=== PATIENT | male | born 1990 | race Caucasian/White ===

== ENCOUNTER 2018-12-31 05:44 | Emergency (ER) | payer SELFPAY ==
[~2018-12-31] VITALS: Ht 182.9 cm; Wt 117.9 kg
[2018-12-31 05:58] VITALS: BP 132/71
[2018-12-31] MEDS ORDERED: TRAM50TA PO (06:21)
[2018-12-31] MEDS ORDERED: ACYC800T PO (06:21)
--- NOTE | 2018-12-31 06:21 | PHYS DOC ---
Past Medical History Past Medical History: No Pertinent History Past Surgical History: No Surgical History Alcohol Use: Occasionally Drug Use: Marijuana Adult General Chief Complaint Chief Complaint: SKIN PROBLEM [facility] HPI Patient is a 28 year old presented to the ER today for evaluation of painful rash on the right side of his face since Monday night. No fever. No headache, no blurry vision. Review of Systems Review of Systems Constitutional: Denies fever or chills [] Eyes: Denies change in visual acuity, redness, or eye pain [] HENT: Denies nasal congestion or sore throat [] Respiratory: Denies cough or shortness of breath [] Cardiovascular: No additional information not addressed in HPI [] GI: Denies abdominal pain, nausea, vomiting, bloody stools or diarrhea [] : Denies dysuria or hematuria [] Musculoskeletal: Denies back pain or joint pain [] Integument: PAINFUL SKIN RASH ON RIGHT SIDE FACE Neurologic: Denies headache, focal weakness or sensory changes [] Endocrine: Denies polyuria or polydipsia [] All other systems were reviewed and found to be within normal limits, except as documented in this note. Allergies Allergies Allergies Coded Allergies Type Severity Reaction Last Updated Verified No Known Drug Allergies 07/03/15 No Physical Exam Physical Exam Constitutional: Well developed, well nourished, no acute distress, non-toxic appearance. [] HENT: Normocephalic, atraumatic, bilateral external ears normal, oropharynx mois t, no oral exudates, nose normal. [] Eyes: PERRLA, EOMI, conjunctiva normal, no discharge. NO CONJUNCTIVAL INJECTION. Neck: Normal range of motion, no tenderness, supple, no stridor. [] Cardiovascular:Heart rate regular rhythm, no murmur [] Lungs & Thorax: Bilateral breath sounds clear to auscultation [ Skin: NUMEROUS CRUSTED LESIONS ON RIGHT SIDE FACE, RIGHT SIDE FOREHEAD AND SCALP AREA, RIGHT SIDE NOSE, AROUND RIGHT PERIORBITAL AREA, NOT CROSSING MIDLINE. ] Extremities: No tenderness, no cyanosis, no clubbing, ROM intact, no edema. [] Neurologic: Alert and oriented X 3, normal motor function, normal sensory function, no focal deficits noted. [] Psychologic: Affect normal, judgement normal, mood normal. [] Current Patient Data Vital Signs Vital Signs Date Time Temp Pulse Resp B/P (MAP) Pulse Ox O2 Delivery O2 Flow Rate FiO2 12/31/18 05:58 99.0 98 18 132/71 (91) 99 Room Air 99.0 EKG EKG [] Radiology/Procedures Radiology/Procedures [] Course & Med Decision Making Course & Med Decision Making Pertinent Labs and Imaging studies reviewed. (See chart for details) [] Dragon Disclaimer Dragon Disclaimer This electronic medical record was generated, in whole or in part, using a voice recognition dictation system. Departure Departure Impression: Primary Impression: Terry Disposition: HOME, SELF-CARE Condition: STABLE Referrals: NO PCP (PCP) follow up with your doctor this week for reevaluation Patient Instructions: Terry Scripts Tramadol Hcl (TRAMADOL HCL) 50 Mg Tablet 50 MG PO Q6HRS PRN for PAIN for 5 Days, #20 TAB Prov: TIFFANY BOSE DO 12/31/18 Acyclovir (ACYCLOVIR) 800 Mg Tablet 1 TAB PO 5XDAY for 10 Days, #50 TAB Prov: TIFFANY BOSE DO 12/31/18 TIFFANY BOSE DO Dec 31, 2018 06:21
== END 2018-12-31 06:25 | disposition home or self-care (01) ==
LOC: ER 05:44
DX: B02.9 Zoster without complications (principal)
CPT/HCPCS: 99283

== ENCOUNTER 2019-04-01 08:41 | Emergency (ER) | payer SELFPAY ==
[~2019-04-01] VITALS: Ht 182.9 cm; Wt 117.9 kg
[~2019-04-01 08:41] MED LIST: ACYC800T PO; TRAM50TA PO
--- NOTE | 2019-04-01 08:52 | PHYS DOC ---
Past Medical History Past Medical History: No Pertinent History Past Surgical History: No Surgical History Alcohol Use: Occasionally Drug Use: Marijuana Adult General HPI HPI Patient is a 29-year-old male who presents to the emergency department via EMS. He states he has been under a lot of stress, and having a lot of anxiety, primarily related to work-related stress, as well as ongoing difficulties with custody of his children. He had a panic attack or work today, where he was hyperventilating. He is feeling somewhat better at this time. He denies any pain. He denies any suicidal or homicidal thoughts. He denies hallucinations. He is not currently under the care of a psychiatrist or other mental health professional. There are no alleviating or exacerbating factors to his symptoms otherwise. Review of Systems Review of Systems Constitutional: Denies fever or chills [] Eyes: Denies change in visual acuity, redness, or eye pain [] HENT: Denies nasal congestion or sore throat [] Respiratory: Denies cough or current shortness of breath . Denies pleuritic pain.[] Cardiovascular: The patient denies any shortness of breath, chest pain, palpitations, or orthopneaI [] GI: Denies abdominal pain, nausea, vomiting, bloody stools or diarrhea [] : Denies dysuria or hematuria [] Musculoskeletal: Denies back pain or joint pain [] Integument: Denies rash or skin lesions [] Neurologic: Denies headache, focal weakness or current sensory changes. Did report some paresthesias while hyperventilating prior to arrival. [] Endocrine: Denies polyuria or polydipsia [] All other systems were reviewed and found to be within normal limits, except as documented in this note. Current Medications Current Medications Current Medications Medications (Trade) Dose Ordered Sig/Daya Start Time Stop Time Status Last Admin Dose Admin Lorazepam (Ativan) 1 mg 1X ONCE 04/01/19 09:00 04/01/19 09:01 DC 04/01/19 09:13 1 MG Allergies Allergies Allergies Coded Allergies Type Severity Reaction Last Updated Verified No Known Drug Allergies 07/03/15 No Physical Exam Physical Exam PHYSICAL EXAM: CONSTITUTIONAL: Well developed, well nourished HEAD: normocephalic, atraumatic EENT: PERRL, EOMI. Conjunctivae normal color, sclerae non-icteric; moist mucous membranes. NECK: Supple, non-tender; no meningismus. LUNGS: Lungs CTA, breathing even and unlabored. Normal air movement. HEART: Regular rate and rhythm, no murmur CHEST: No deformity; non-tender ABDOMEN: The abdomen is soft, and non-tender, no masses or bruits. EXTREM: Normal ROM; no deformity, no calf tenderness. Normal pulses palpable in all extremities. There is no pedal edema. SKIN: No rash; no diaphoresis NEURO: Alert; normal speech and cognition; CN's grossly intact; strength grossly intact without focal deficit. BACK: No CVA TTP. PSYCHIATRIC: Anxious affect. Denies SI or HI. Current Patient Data Vital Signs Vital Signs Date Time Temp Pulse Resp B/P (MAP) Pulse Ox O2 Delivery O2 Flow Rate FiO2 04/01/19 09:11 60 18 132/73 (92) 97 Room Air 04/01/19 08:42 98.1 98.1 EKG EKG [] Radiology/Procedures Radiology/Procedures [] Course & Med Decision Making Course & Med Decision Making Patient condition remains stable, he is feeling better, and was seen by PAT health insurance assessor, and has been given outpatient follow-up resources. I discussed diagnosis and return precautions with the patient. Dragon Disclaimer Dragon Disclaimer This electronic medical record was generated, in whole or in part, using a voice recognition dictation system. Departure Departure Impression: Primary Impression: Anxiety Disposition: 01 HOME, SELF-CARE Condition: STABLE Patient Instructions: Anxiety and Panic Attacks Additional Instructions: Follow-up for mental health counseling related to anxiety, using the resources provided. Return to medical care for any new or worsening symptoms, development of suicidal thoughts, inability to cope, or any other concerning symptoms. GEORGIA SORENSEN MD Apr 01, 2019 08:52
[2019-04-01] MEDS ORDERED: LORazepam 0.5 MG TABLET PO ONE (09:00)
[2019-04-01 10:41] VITALS: BP 137/85
== END 2019-04-01 11:27 | disposition home or self-care (01) ==
LOC: ER 08:41
DX: F41.9 Anxiety disorder, unspecified (principal)
CPT/HCPCS: 99284

== ENCOUNTER 2019-08-21 23:16 | Emergency (ER) | payer OTHER ==
[~2019-08-21] VITALS: Ht 182.9 cm; Wt 106.0 kg
[2019-08-21 23:20] VITALS: BP 153/83
--- NOTE | 2019-08-22 00:11 | PHYS DOC ---
Past Medical History Past Medical History: Other Additional Past Medical Histor: STRESS INDUCED SHINGLES (DELFINA CRUZ APRN) Past Surgical History: No Surgical History (DELFINA CRUZ APRN) Alcohol Use: Occasionally Drug Use: Marijuana Social History Narrative: MARIJUANA DAILY (DELFINA CRUZ APRN) Attending Signature I have participated in the care of this patient and I have reviewed and agree with all pertinent clinical information above including history, exam, and recommendations. (EMA CASTRO MD) Adult General Chief Complaint Chief Complaint: Congestion HPI HPI Patient is a 29 year old male who presents with runny nose, scabbing in his nose, and a tender nose is been ongoing for 3 weeks. 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 He has been sneezing and having these symptoms since he changed his work environment. Denies any other symptoms. Complete ROS were reviewed and found to be within normal limits, except as documented in the HPI (DELFINA CRUZ APRN) Allergies Allergies Allergies Coded Allergies Type Severity Reaction Last Updated Verified No Known Drug Allergies 07/03/15 No (EMA CASTRO MD) Physical Exam Physical Exam Constitutional: Well developed, well nourished, no acute distress, non-toxic appearance. [] HENT: Normocephalic, atraumatic, bilateral external ears normal, oropharynx moist, no oral exudates, nose has crusting and scabs. Eyes: PERRLA, EOMI, conjunctiva normal, no discharge. [] Neck: Normal range of motion, no tenderness, supple, no stridor. [] Cardiovascular:Heart rate regular rhythm, no murmur [] Lungs & Thorax: Bilateral breath sounds clear to auscultation [] Skin: Warm, dry, no erythema, no rash. [] Neurologic: Alert and oriented X 3, normal motor function, normal sensory function, no focal deficits noted. [] Psychologic: Affect normal, judgement normal, mood normal. [] (DELFINA CRUZ APRN) Current Patient Data Vital Signs Vital Signs Date Time Temp Pulse Resp B/P (MAP) Pulse Ox O2 Delivery O2 Flow Rate FiO2 08/21/19 23:20 98.4 79 16 153/83 (106) 99 98.4 (EMA CASTRO MD) EKG EKG [] (DELFINA CRUZ APRN) Radiology/Procedures Radiology/Procedures [] (DELFINA CRUZ APRN) Course & Med Decision Making Course & Med Decision Making Pertinent Labs and Imaging studies reviewed. (See chart for details) [] (DELFINA CRUZ APRN) Dragon Disclaimer Dragon Disclaimer This electronic medical record was generated, in whole or in part, using a voice recognition dictation system. (DELFINA CRUZ APRN) Departure Departure Impression: Primary Impression: Allergic rhinitis Disposition: HOME, SELF-CARE Condition: STABLE Referrals: NO PCP (PCP) Patient Instructions: Allergic Rhinitis Additional Instructions: Thank you for visiting [facility]. We appreciate you trusting us with your care. If any additional problems come up don't hesitate to return to visit us. Please follow up with your primary care provider so they can plan additional care if needed and know about the problem that you had. If symptoms worsen come back to the Emergency Department. Any concerning symptoms that start such as chest pain, shortness of air, weakness or numbness on one side of the body, running high fevers or any other concerning symptoms return to the ER. Please get neosporin and put small amounts in nares. Also please get Zyrtec and take per label instructions. Problem Qualifiers Primary Impression: Allergic rhinitis Allergic rhinitis trigger: unspecified Allergic rhinitis seasonality: unspecified Qualified Codes: J30.9 - Allergic rhinitis, unspecified DELFINA CRUZ APRN Aug 22, 2019 00:11 EMA CASTRO MD Aug 22, 2019 04:17
== END 2019-08-22 00:19 | disposition home or self-care (01) ==
LOC: ER 23:16
DX: J30.9 Allergic rhinitis, unspecified (principal)
CPT/HCPCS: 99281

== ENCOUNTER 2019-10-16 18:32 | Emergency (ER) | payer OTHER ==
[~2019-10-16] VITALS: Ht 182.9 cm; Wt 118.0 kg
[2019-10-16 18:39] VITALS: BP 131/59
[2019-10-16] MEDS ORDERED: MUPI22OI2 TP (18:54)
--- NOTE | 2019-10-16 18:54 | PHYS DOC ---
Past Medical History Past Medical History: Other Additional Past Medical Histor: STRESS INDUCED SHINGLES (ASHLI ACOSTA APRN) Past Surgical History: No Surgical History (ASHLI ACOSTA APRN) Smoking Status: Current Every Day Smoker Alcohol Use: Occasionally Drug Use: Marijuana (ASHLI ACOSTA APRN) Attending Signature I have participated in the care of this patient and I have reviewed and agree with all pertinent clinical information above including history, exam, and recommendations. (EMA CASTRO MD) Adult General Chief Complaint Chief Complaint: SKIN PROBLEM HPI HPI Patient is a 29 year old who presents to the emergency department with complaints of a red blisterlike rash noted to the left medial ankle that started last night. Patient states that the area itches, he denies any pain or known injury. Patient denies any numbness, tingling, or weakness of the affected foot he denies any fever, cough, nausea, vomiting, diarrhea, or sore throat. Patient states that his family members recently were diagnosed with impetigo and he is pretty sure that that is what he has. He currently denies any pain. (ASHLI ACOSTA APRN) Review of Systems Review of Systems Complete ROS is negative unless otherwise noted in HPI. (ASHLI ACOSTA APRN) Allergies Allergies Allergies Coded Allergies Type Severity Reaction Last Updated Verified No Known Drug Allergies 07/03/15 No (EMA CASTRO MD) Physical Exam Physical Exam See Above Constitutional: Well developed, well nourished, no acute distress, non-toxic appearance. [] HENT: Normocephalic, atraumatic, bilateral external ears normal, nose normal. [] Eyes: PERRLA, EOMI, conjunctiva normal, no discharge. [] Neck: Normal range of motion, no stridor. [] Cardiovascular:Heart rate regular rhythm Lungs & Thorax: Respirations even and unlabored, no retractions, no respiratory distress Skin: Warm, dry, 2 cm x 0.5 cm erythremic area with few small vessicles over it noted to medial L ankle consistent with bullous impetigo Extremities: No cyanosis, ROM intact, no edema. [] Neurologic: Alert and oriented X 3, no focal deficits noted. [] Psychologic: Affect normal, judgement normal, mood normal. [] (ASHLI ACOSTA APRN) Current Patient Data Vital Signs Vital Signs Date Time Temp Pulse Resp B/P (MAP) Pulse Ox O2 Delivery O2 Flow Rate FiO2 10/16/19 18:39 98.5 80 16 131/59 (83) 97 Room Air 98.5 (EMA CASTRO MD) EKG EKG [] (ASHLI ACOSTA APRN) Radiology/Procedures Radiology/Procedures [] (ASHLI ACOSTA APRN) Course & Med Decision Making Course & Med Decision Making Pertinent Labs and Imaging studies reviewed. (See chart for details) [] (ASHLI ACOSTA APRN) Dragon Disclaimer Dragon Disclaimer This electronic medical record was generated, in whole or in part, using a voice recognition dictation system. (ASHLI ACOSTA APRN) Departure Departure Impression: Primary Impression: Impetigo contagiosa bullosa Disposition: HOME, SELF-CARE Condition: STABLE Referrals: NO PCP (PCP) Patient Instructions: Impetigo Additional Instructions: Fill the prescription(s) and use as directed. Keep fingernails trimmed short. Apply antibiotic ointment under fingernails as instructed. Follow up with your primary care doctor next week for recheck, return to the ER if symptoms worsen. Scripts Mupirocin (MUPIROCIN OINTMENT) 22 Gm Oint...g. 1 FAYE TP TID for WOUND CARE, #1 TUBE Prov: ASHLI ACOSTA APRN 10/16/19 ASHLI ACOSTA APRN Oct 16, 2019 18:54 EMA CASTRO MD Oct 17, 2019 01:32
== END 2019-10-16 19:04 | disposition home or self-care (01) ==
LOC: ER 18:32
DX: L01.03 Bullous impetigo (principal); F17.200 Nicotine dependence, unspecified, uncomplicated
CPT/HCPCS: 99283

== ENCOUNTER 2020-10-22 05:15 | Emergency (ER) | payer SELFPAY ==
[~2020-10-22] VITALS: Ht 182.9 cm; Wt 113.6 kg
[~2020-10-22 05:15] MED LIST changes: +MUPI22OI2 TP
--- NOTE | 2020-10-22 05:40 | PHYS DOC ---
Past Medical History Past Medical History: Other Additional Past Medical Histor: STRESS INDUCED SHINGLES Past Surgical History: No Surgical History Smoking Status: Current Every Day Smoker Alcohol Use: Occasionally Drug Use: Marijuana General Adult EDM: Chief Complaint: FLANK PAIN HPI: HPI: Patient is a 30 year old male presenting for left lower back/flank pain. Onset was approximately 5 hours prior to arrival and woke him up from sleep when rolling over. There is no inciting event and/or trauma. He has no history of kidney stones, admits he has distant history of UTI and STD but stated at that time he was having penile discharge and irritation with pain, he denies any other symptoms today. Denies being sexually active. Does admit to being in poor health than usual due to living a more sedentary lifestyle, does admit to helping friends move/relocate houses but denies any obvious inciting event or mechanism of injury Review of Systems: Review of Systems: Fourteen body systems of review of systems have been reviewed. See HPI for pertinent positives and negative responses, other dobson all other systems are negative, non-pertinent or non-contributory Heart Score: C/O Chest Pain: No HEART Score for Chest Pain: HEART Score for Chest Pain Response (Comments) Value History Slighlty/Non-Suspicious 0 Age < 45 0 Risk Factors No Risk Factors 0 Total 0 Risk Factors: Risk Factors: DM, Current or recent (<one month) smoker, HTN, HLP, family history of CAD, obesity. Risk Scores: Score 0 - 3: 2.5% MACE over next 6 weeks - Discharge Home Score 4 - 6: 20.3% MACE over next 6 weeks - Admit for Clinical Observation Score 7 - 10: 72.7% MACE over next 6 weeks - Early Invasive Strategies Current Medications: Current Medications Medications (Trade) Dose Ordered Sig/[facility] Start Time Stop Time Status Last Admin Dose Admin Ketorolac Tromethamine (Toradol 30mg Vial) 30 mg 1X ONCE 10/22/20 06:00 10/22/20 06:01 Allergies: Allergies: Allergies Coded Allergies Type Severity Reaction Last Updated Verified No Known Drug Allergies 07/03/15 No Physical Exam: PE: Constitutional: Well developed, well nourished, no acute distress, non-toxic appearance. HENT: Normocephalic, atraumatic, bilateral external ears normal, oropharynx moist, no oral exudates, nose normal. Eyes: PERRLA, EOMI, conjunctiva normal, no discharge. Neck: Normal range of motion, no tenderness, supple, no stridor. Cardiovascular: Heart rate regular, sinus rhythm, no murmurs rubs or gallops Lungs & Thorax: Bilateral breath sounds clear to auscultation Abdomen: Bowel sounds normal, soft, no tenderness, no masses, no pulsatile masses. Nonsurgical abdomen, no peritoneal signs Skin: Warm, dry, no erythema, no rash. Back: No midline tenderness but there is tenderness with palpation to left paralumbar muscle spasm, left CVA tenderness. Extremities: No tenderness, no cyanosis, no clubbing, ROM intact, no edema. Neurologic: Alert and oriented X 3, grossly normal motor & sensory function, no focal deficits noted. Psychologic: Affect normal, judgement normal, mood normal. Current Patient Data: Vital Signs: Vital Signs Date Time Temp Pulse Resp B/P (MAP) Pulse Ox O2 Delivery O2 Flow Rate FiO2 10/22/20 05:25 97.7 81 20 137/74 (95) 100 Room Air 97.7 Vital Signs Date Time Temp Pulse Resp B/P (MAP) Pulse Ox O2 Delivery O2 Flow Rate FiO2 10/22/20 05:55 71 20 137/75 (95) 99 Room Air 10/22/20 05:25 97.7 97.7 EKG: EKG: [] Radiology/Procedures: Radiology/Procedures: [] Course & Med Decision Making: Course & Med Decision Making ER work-up most consistent with left paralumbar muscle strain versus other likely self-limiting condition. Reviewed ER work-up in its entirety involving negative labs and imaging Patient does not have a primary care physician, he was given resources on who he can follow-up with on departure Supportive care practices advised. Strict return precautions discussed with good understanding by patient, all questions and concerns addressed prior to departure Cruzito Disclaimer: [place] Disclaimer: This electronic medical record was generated, in whole or in part, using a voice recognition dictation system. Departure Departure Impression: Primary Impression: Acute left flank pain Disposition: 01 DC HOME SELF CARE/HOMELESS Condition: STABLE Referrals: NO PCP (PCP) Patient Instructions: Flank Pain Additional Instructions: You have been evaluated in the Emergency Department today for left flank pain. Your evaluation was not suggestive of any emergent condition requiring medical intervention at this time. However, some abdominal problems make take more time to appear. Therefore, it is important for you to watch for any new symptoms or worsening of your current condition. Please follow up with your primary care physician as needed. If you do not have a primary doctor, you can call your insurance company to find one. If you do not have insurance, you can go to the finance/registration department for more assistance. Return to the Emergency Department if you experience worsening pain, persistent fevers greater than 100.4, recurrent vomiting, blood in vomit, blood in stool, dark tarry stool, chest pain, difficulty breathing, or any other concerning symptoms. Scripts Ibuprofen (IBUPROFEN) 800 Mg Tablet 800 MG PO PRN TID PRN for PAIN, #30 TAB take with food or milk to avoid upsetting stomach Prov: FADI RODNEY DO 10/22/20 FADI RODNEY DO Oct 22, 2020 05:40
[2020-10-22 05:51] LABS: BASO # 0.1 x10^3/uL (0.0-0.2); BASO % 1 % (0-3); EOS # 0.2 x10^3/uL (0.0-0.7); EOS % 2 % (0-3); HEMATOCRIT 43.9 % (39.0-53.0); HEMOGLOBIN 14.9 g/dL (13.0-17.5); LYMPH # 2.9 x10^3/uL (1.0-4.8); LYMPH % 27 % (24-48); MEAN CORPUSCULAR HEMOGLOBIN 30 pg (25-35); MEAN CORPUSCULAR HGB CONC 34 g/dL (31-37); MEAN CORPUSCULAR VOLUME 87 fL (79-100); MONO # 1.1 x10^3/uL (0.0-1.1); MONO % 10 % (0-9); NEUT # 6.7 x10^3/uL (1.8-7.7); NEUT % 61 % (31-73); PLATELET COUNT 199 x10^3/uL (140-400); RED BLOOD COUNT 5.04 x10^6/uL (4.30-5.70); RED CELL DISTRIBUTION WIDTH 14.1 % (11.5-14.5)
[2020-10-22 05:55] VITALS: BP 137/75
[2020-10-22] MEDS ORDERED: KETOROLAC 30 MG/ML VIAL. IVP ONE (06:00)
[2020-10-22 06:01] LABS: CREATININE 1.2 mg/dL (0.7-1.3); GFR 70.6; POTASSIUM 4.3 mmol/L (3.5-5.1)
[2020-10-22 06:06] LABS: ALBUMIN 3.7 g/dL (3.4-5.0); TOTAL BILIRUBIN 0.2 mg/dL (0.2-1.0); TOTAL PROTEIN 7.5 g/dL (6.4-8.2)
--- NOTE | 2020-10-22 06:08 | RAD ---
PQRS Compliance Statement: One or more of the following individualized dose reduction techniques were utilized for this examinat ion: 1. Automated exposure control 2. Adjustment of the mA and/or kV according to patient size 3. Use of iterative reconstruction technique CT ABDOMEN+PELVIS WO Clinical Indication: Reason: left flank pain / Spl. Instructions: / History: Comparison: None. Technique: Helical CT imaging of the abdomen and pelvis is performed without IV or oral contrast. Findings: Minimal bilateral dependent atelectasis. There is a 5 mm nodule in the left lower lobe, image 3. In a patient of this age this is probably benign. Consider CT chest follow-up in 12 months if patient has risk factors for lung malignancy, otherwise no follow-up is required per Fleischner Society guidelin es. The cardiac size is normal. The liver, gallbladder, spleen, pancreas, adrenal glands, and abdominal aorta caliber are normal. There are several punctate bilateral nonobstructing renal calculi versus mild medullary nephrocalcino sis. There is no perinephric stranding or hydronephrosis. There is no ureteral calculus. There is no obvious abnormality of the stomach. There is no dilated small bowel. The appendix is norm al. There is scattered stool in the colon. No colon wall thickening is identified. There is no abdomi nal adenopathy or free fluid. The urinary bladder is normal. The prostate and seminal vesicles are normal. There is no pelvic free fluid. There is no acute bone abnormality. IMPRESSION: 1. No acute abdominal or pelvic abnormality. No obstructive uropathy. 2. There are punctate bilateral nonobstructing renal calculi versus mild medullary nephrocalcinosis. Electronically signed by: Gonsalo Quintana MD (10/22/2020 6:06 AM) [facility]
[2020-10-22] MEDS ORDERED: IBUP-1060 PO (06:29)
[2020-10-22] MEDS ORDERED: hydroCHLOROthiazide 12.5 MG CAPSULE PO ONE (07:00)
[2020-10-22] MEDS ORDERED: amLODIPine BESYLATE 5 MG TABLET PO ONE (07:00)
== END 2020-10-22 06:50 | disposition home or self-care (01) ==
LOC: ER 05:15
DX: R10.32 Left lower quadrant pain (principal); M54.5 Low back pain; F17.200 Nicotine dependence, unspecified, uncomplicated; Z87.440 Personal history of urinary (tract) infections
CPT/HCPCS: 36415; 74176; 80053; 85025; 96374; 99284; J1885

== ENCOUNTER 2021-09-17 16:52 | Emergency (ER) | payer OTHER ==
[~2021-09-17] VITALS: Ht 182.9 cm; Wt 113.6 kg
[~2021-09-17 16:52] MED LIST changes: -ACYC800T PO; +ACYC800T88 PO; +IBUP-1060 PO
--- NOTE | 2021-09-17 17:57 | PHYS DOC ---
Past Medical History Past Medical History: UTI, Other Additional Past Medical Histor: STRESS INDUCED SHINGLES Past Surgical History: No Surgical History Smoking Status: Current Every Day Smoker Alcohol Use: None Drug Use: Marijuana General Adult EDM: Chief Complaint: LOWER EXTREMITY SWELLING HPI: HPI: Patient is a 31-year-old male that presents today with bilateral leg pain and edema. Patient states he started working at a new job recently where he standing on his feet quite a bit and he has noticed that his legs are continuously swollen and are very painful to touch. Patient states he wears [place] to work and does not wear compression stockings he wears regular socks. Patient denies trauma or injury to his legs, patient states that he has had difficulties with swelling in his legs for a number of years is just worsened over the last week or so. Patient denies chest pain or shortness of air at this time. Review of Systems: Review of Systems: Constitutional: Denies fever or chills. [] Eyes: Denies change in visual acuity. [] HENT: Denies nasal congestion or sore throat. [] Respiratory: Denies cough or shortness of breath. [] Cardiovascular: Denies chest pain or edema. [] GI: Denies abdominal pain, nausea, vomiting, bloody stools or diarrhea. [] : Denies dysuria. [] Musculoskeletal: Bilateral leg pain and swelling Integument: Denies rash. [] Neurologic: Denies headache, focal weakness or sensory changes. [] Endocrine: Denies polyuria or polydipsia. [] Lymphatic: Denies swollen glands. [] Psychiatric: Denies depression or anxiety. [] Heart Score: C/O Chest Pain: N/A Risk Factors: Risk Factors: DM, Current or recent (<one month) smoker, HTN, HLP, family history of CAD, obesity. Risk Scores: Score 0 - 3: 2.5% MACE over next 6 weeks - Discharge Home Score 4 - 6: 20.3% MACE over next 6 weeks - Admit for Clinical Observation Score 7 - 10: 72.7% MACE over next 6 weeks - Early Invasive Strategies Allergies: Allergies: Allergies Coded Allergies Type Severity Reaction Last Updated Verified No Known Drug Allergies 07/03/15 No Physical Exam: PE: Constitutional: Well developed, well nourished, no acute distress, non-toxic appearance. [] HENT: Normocephalic, atraumatic, bilateral external ears normal, oropharynx moist, no oral exudates, nose normal. [] Eyes: PERRLA, EOMI, conjunctiva normal, no discharge. [] Neck: Normal range of motion, no tenderness, supple, no stridor. [] Cardiovascular:Heart rate regular rhythm, no murmur [] Lungs & Thorax: Bilateral breath sounds clear to auscultation [] Abdomen: Bowel sounds normal, soft, no tenderness, no masses, no pulsatile masses. [] Skin: Warm, dry, no erythema, no rash. [] Back: No tenderness, no CVA tenderness. [] Extremities: Bilateral leg edema trace noted, bilateral pedal pulses 2+, cap refill less than 2 seconds, sensory is intact in the toes. Normal range of motion, patient's gait is steady Neurologic: Alert and oriented X 3, normal motor function, normal sensory function, no focal deficits noted. [] Psychologic: Affect normal, judgement normal, mood normal. [] Current Patient Data: Vital Signs: Vital Signs Date Time Temp Pulse Resp B/P (MAP) Pulse Ox O2 Delivery O2 Flow Rate FiO2 09/17/21 17:24 98.1 87 18 155/72 (99) 98 Room Air 98.1 EKG: EKG: [] Radiology/Procedures: Radiology/Procedures: REASON: bilateral leg PAIN PROCEDURE: VENOUS LOWER EXT BILATERAL EXAM: Bilateral lower extremity venous Doppler. HISTORY: Bilateral lower extremity pain/swelling. COMPARISON: None. FINDINGS: Grayscale and Doppler analysis of the both lower extremity deep venous systems was performed with graded compression and augmentation. The common femoral, greater saphenous, superficial femoral, popliteal and calf veins were assessed. There is no evidence of deep venous thrombosis. IMPRESSION: 1. No evidence of deep venous thrombosis. Electronically signed by: Bee Kruger MD (09/17/2021 7:08 PM) [facility] [] Course & Med Decision Making: Course & Med Decision Making Pertinent Labs and Imaging studies reviewed. (See chart for details) 1913 are reviewed radiological findings with the patient informed him there was no signs of DVT, did inform him as this is coincided with starting a new job and standing on his feet quite a bit it may patient be related to not having good supportive shoes and the need for compression stockings. Did inform him to find shoes that were supportive and gave cushioning to the heels, also informed him to get some compression stockings to wear that they will help with edema and leg fatigue. Patient states he does not have a primary care physician I will give him a list of clinics that he can follow-up with for further management of swelling in his legs. Patient verbalized understanding of this and agreeable to the plan of care Cruzito Disclaimer: Cruzito Disclaimer: This electronic medical record was generated, in whole or in part, using a voice recognition dictation system. Departure Departure Impression: Primary Impression: Swelling of lower leg Disposition: HOME / SELF CARE / HOMELESS Condition: STABLE Referrals: NO PCP (PCP) Additional Instructions: Wear supportive shoes while at work, I do recommend compression stockings to help with lower leg fatigue and swelling Follow-up with your primary care physician or one of the clinics listed below for further management of your lower extremity edema. [facility] [address] [place] [address] [facility] [address] [place] [address] [facility] [address] [facility] [place] [address] [facility] [address] [place] [address] [facility] [address] [place] [address] [facility] [address] [place] [address] [facility] [address] [place] [address] [facility] [address] [place] [address] [facility] [address] [place] [address] [facility] [address] [place] [address] MIKE SAGE APRN Sep 17, 2021 17:57
[2021-09-17 18:52] VITALS: BP 160/94
--- NOTE | 2021-09-17 19:10 | RAD ---
EXAM: Bilateral lower extremity venous Doppler. HISTORY: Bilateral lower extremity pain/swelling. COMPARISON: None. FINDINGS: Grayscale and Doppler analysis of the both lower extremity deep venous systems was performe d with graded compression and augmentation. The common femoral, greater saphenous, superficial femora l, popliteal and calf veins were assessed. There is no evidence of deep venous thrombosis. IMPRESSION: 1. No evidence of deep venous thrombosis. Electronically signed by: Bee Kruger MD (09/17/2021 7:08 PM) [facility]
== END 2021-09-17 19:24 | disposition home or self-care (01) ==
LOC: ER 16:52
DX: R22.43 Localized swelling, mass and lump, lower limb, bilateral (principal); F17.200 Nicotine dependence, unspecified, uncomplicated
CPT/HCPCS: 93970; 99284-25